=== PATIENT | female | born 1990 | race Caucasian/White ===

== ENCOUNTER 2016-03-06 19:35 | Emergency (ER) | payer SELFPAY ==
[2016-03-06] MEDS ORDERED: METHYLPRED SOD SUCC 125 MG/2 ML VIAL ONE (21:09)
[2016-03-06] MEDS ORDERED: DUONEB INH ONE ×2 (21:17)
== END 2016-03-06 22:19 | disposition home or self-care (01) ==
LOC: ER 19:35
DX: J45.21 Mild intermittent asthma with (acute) exacerbation (principal); Z79.899 Other long term (current) drug therapy; Z87.891 Personal history of nicotine dependence
CPT/HCPCS: 71020; 94640; 96372